=== PATIENT | female | born 1945 | race Caucasian/White ===

== ENCOUNTER 2022-11-21 14:59 | Emergency (ER) | payer BC, MEDICARE ==
[~2022-11-21] VITALS: Ht 172.7 cm; Wt 86.4 kg
[2022-11-21] MEDS ORDERED: normal saline 1000ML IV soln IVB ONE (16:00)
[2022-11-21 16:04] LABS: BASOPHILS # (AUTO) 0.1 X10'3 (0-0.2); BASOPHILS % (AUTO) 0.4 % (0-1); EOSINOPHILS # (AUTO) 0.1 X10'3 (0-0.9); EOSINOPHILS % (AUTO) 0.5 % (0-6); HEMATOCRIT 44.4 % (35.0-45.0); HEMOGLOBIN 14.4 g/dl (12.0-16.0); LYMPHOCYTES # (AUTO) 2.2 X10'3 (1.1-4.8); LYMPHOCYTES % (AUTO) 14.9 % (21-51); MEAN CORPUSCULAR HEMOGLOBIN 31.8 PG (27.0-31.0); MEAN CORPUSCULAR HGB CONC 32.5 g/dL (33.0-36.5); MEAN PLATELET VOLUME 8.1 FL (7.4-10.4); MONOCYTES # (AUTO) 1.1 X10'3 (0-0.9); MONOCYTES % (AUTO) 7.2 % (2-12); NEUTROPHILS # (AUTO) 11.3 X10'3 (1.8-7.7); PLATELET COUNT 334 X10'3 (140-440); RED BLOOD COUNT 4.53 X10'6 (4.20-5.60); WHITE BLOOD COUNT 14.6 X10'3 (4.5-11.0)
[2022-11-21 16:16] LABS: ALANINE AMINOTRANSFERASE 24 U/L (12-78); ALBUMIN 3.8 G/DL (3.4-5.0); ALBUMIN/GLOBULIN RATIO 1.1 (1.1-1.5); ALKALINE PHOSPHATASE 68 IU/L (46-116); ANION GAP 12 (8-16); ASPARTATE AMINO TRANSFERASE 26 U/L (10-37); BILIRUBIN,TOTAL 0.7 MG/DL (0.1-1.0); BLOOD UREA NITROGEN 36 MG/DL (7-18); BUN/CREATININE RATIO 26.3 (6.6-38.0); CALCIUM 9.7 MG/DL (8.5-10.1); CHLORIDE 106 MMOL/L (99-107); CREATININE 1.37 MG/DL (0.40-0.90); GLUCOSE 116 MG/DL (70-104); POTASSIUM 3.6 MMOL/L (3.5-5.1); SODIUM 144 MMOL/L (135-145); TOTAL CARBON DIOXIDE 25.7 MMOL/L (24-32); TOTAL PROTEIN 7.4 G/DL (6.4-8.2); eGFR 37 ML/MIN
[2022-11-21] MEDS ORDERED: CefTRIAXone 2gm/D5W 50ml BAG 50 ML IV ONE (16:30)
[2022-11-21] MEDS ORDERED: normal saline 1000ML IV soln IV ONE (16:30)
[2022-11-21 16:43] LABS: CREATINE KINASE 306 U/L (26-192)
[2022-11-21 17:18] LABS: CLARITY,URINE CLOUDY (Clear); COLOR,URINE YELLOW (Yellow); GLUCOSE, URINE NEGATIVE (Neg); KETONES,URINE NEGATIVE (Neg); LEUKOCYTE ESTERASE ,URINE NEGATIVE (Neg); NITRITES, URINE NEGATIVE (Neg); OCCULT BLOOD,URINE TRACE-INTACT (Neg); PH,URINE 5.5 (4.8-8.0); PROTEIN,URINE TRACE mg/dl (Neg); UROBILINOGEN,URINE 0.2 E.U/dL (0.2-1.0)
[2022-11-21 17:57] LABS: UA COLLECTION TYPE STRAIGHT CATH
[2022-11-21 18:00] LABS: BACTERIA,URINE 3+ /HPF (Neg); RBC,URINE 0-2 /HPF (0-2); SQUAMOUS EPITHELIAL CELL,UR MODERATE /LPF (FEW)
[2022-11-21 18:01] LABS: TRANSITIONAL EPI CELLS,URINE FEW /HPF
--- NOTE | 2022-11-22 05:49 | NUR ---
DR. SELBY NOTIFIED OF PTS INCREASING BP. PER DR SELBY CONTINUE MONITORING BP. NO ORDERS RECIEVED.
--- NOTE | 2022-11-22 07:48 | NUR ---
PT DAUGHTER IN [employer] CALLED FOR UPDATE. RN TOOK MESSAGE AND WILL CALL HER BACK.
--- NOTE | 2022-11-22 08:17 | NUR ---
PT WAS ACCEPTED AT [facility] [address] [place] [address] UN[address] ICU ROOM [id number]. DR ZARATE [phone]. WILL CALL REPORT ONCE WE HAVE TRANSPORTATION ETA. D/T WEATHER WE DO NOT HAVE ETA AT THIS TIME.
--- NOTE | 2022-11-22 10:13 | NUR ---
RN UPDATED PT SON JEFF BAUMAN ABOUT PT TRANSFER TO [facility].
[2022-11-22 18:30] VITALS: BP 157/90
== END 2022-11-22 11:30 | disposition admitted as inpatient to this hospital (09) ==
LOC: ER 15:00
DX: G93.41 Metabolic encephalopathy (principal); Z20.822 Contact with and (suspected) exposure to COVID-19; R53.1 Weakness; C71.9 Malignant neoplasm of brain, unspecified; W19.XXXA Unspecified fall, initial encounter; Y93.89 Activity, other specified; Y92.89 Other specified places as the place of occurrence of the external cause; Y99.8 Other external cause status
CPT/HCPCS: 36415; 70450; 71045; 80053; 81001; 82024; 82533; 82550; 83880; 84145; 84146; 84439; 84443; 84484; 85025; 87088; 87811; 93005; 96365; 96366; 99291; 99292; J0696; J7030; A4353